=== PATIENT | female | born 1955 | race African-American/Black ===

== ENCOUNTER 2017-09-25 16:43 | Emergency (ER) | payer OTHER ==
[~2017-09-25] VITALS: Ht 167.6 cm; Wt 120.2 kg
--- NOTE | ~2017-09-25 | EKG ---
[place] [address] [facility] [place] [address] ELECTROCARDIOGRAM REPORT Name: MATT ROPER Ken Room #: [facility] Matty#: [id number] Admission: 09/25/17 Attend Phys: Discharge: 09/25/17 Date of : 57 Report #: [id number] THIS REPORT FOR: //name// [facility] ED Test Date: 2017-09-25 Test Time: 20:08:42 Pat Name: MATT ROPER Department: Room: Gender: F [employer] Director: jlambertz : 1955 Requested By: Mine Jones Order Number: [id number] MD: Lj Chance Measurements Intervals [place] Rate: 70 P: 46 CT: 185 QRS: 55 QRSD: 87 T: 57 QT: 386 QTc: 417 Interpretive Statements Sinus rhythm Normal tracing No previous ECG available for comparison Electronically Signed On 09-26-2017 7:58:37 CDT by Lj Chance [email or web address] <ELECTRONICALLY SIGNED> By: Lj Chance MD, [facility] 09/26/17 0758 07 07 Lj Chance MD, FACC /EPI
[2017-09-25 18:39] LABS: HEMOGLOBIN 14.5 gm/dL (12.0-15.0); RDW 15.5 % (10.5-14.5)
[2017-09-25 18:41] LABS: HEMATOCRIT 42.7 % (37.0-47.0); MCH 28.4 pg (26.0-34.0); MCV 83.5 fL (80.0-100.0); PLATELET COUNT 373 thou/uL (150-400); RBC 5.12 mil/uL (4.20-5.00); WBC 7.7 thou/uL (4.0-11.0)
[2017-09-25 18:49] LABS: ANION GAP 7 mmol/L (7-16); BUN 10 mg/dL (7-18); CALCIUM 9.6 mg/dL (8.5-10.1); CHLORIDE 98 mmol/L (98-107); CO2 29 mmol/L (21-32); GLUCOSE 321 mg/dL (74-106); SODIUM 134 mmol/L (136-145)
[2017-09-25 18:50] LABS: POTASSIUM 4.3 mmol/L (3.5-5.1)
[2017-09-25 18:53] LABS: ALBUMIN 3.4 g/dL (3.4-5.0); DIRECT BILIRUBIN < 0.1 mg/dL (<0.1-0.3); LIPASE 271 U/L (73-393); SGOT 23 U/L (15-37); SGPT 23 U/L (30-65); TOTAL BILIRUBIN 0.3 mg/dL (<0.1-1.0); TOTAL PROTEIN 8.7 g/dL (6.4-8.2)
[2017-09-25 18:55] VITALS: BP 138/85
[2017-09-25 19:11] LABS: ABSOLUTE NEUTROPHILS 2.5 thou/uL (1.4-8.2)
== END 2017-09-25 21:08 | disposition home or self-care (01) ==
LOC: ER 16:43
PROVIDERS: Emergency Medicine
DX: K92.2 Gastrointestinal hemorrhage, unspecified (principal)

== ENCOUNTER → 2017-10-18 | Outpatient (CLI) | payer OTHER ==
[~2017-10-18] VITALS: Ht 162.6 cm; Wt 109.9 kg
[~2017-10-18] MED LIST: LIPITOR10 MG PO; METFORMIN HCL500 MG PO; PRINIVIL10 MG PO; PROAIR HFA8.5 GM INH; TRULICITY0.75 MG/0. SUBQ
[2017-10-18 10:55] VITALS: BP 135/90
[2017-10-18 22:10] LABS: CREATININE (ALB/CR) 94.8 mg/dL (Not Estab.); MICROALB:CREAT 9.1 (0.0-30.0); MICROALBUMIN-RND URINE 8.6 ug/mL (Not Estab.)
== END ==
LOC: SEN 10:48
PROVIDERS: Nurse Practitioner Family
DX: E11.9 Type 2 diabetes mellitus without complications (principal); I10 Essential (primary) hypertension; E78.5 Hyperlipidemia, unspecified; J44.9 Chronic obstructive pulmonary disease, unspecified; E66.01 Morbid (severe) obesity due to excess calories

== ENCOUNTER → 2017-12-19 | Outpatient (CLI) | payer OTHER ==
[~2017-12-19] MED LIST changes: +ASPIR 8181 MG PO; +BREO ELLIPTA 11 EACH INH; +FARXIGA5 MG PO
[2017-12-19 13:22] VITALS: BP 131/82
== END ==
LOC: SEN 10:05
DX: M54.2 Cervicalgia (principal); F41.9 Anxiety disorder, unspecified; G47.33 Obstructive sleep apnea (adult) (pediatric); E11.9 Type 2 diabetes mellitus without complications; E78.5 Hyperlipidemia, unspecified; I10 Essential (primary) hypertension; J45.909 Unspecified asthma, uncomplicated